=== PATIENT | female | born 1975 | race Caucasian/White ===

== ENCOUNTER → 2021-01-02 | Outpatient (CLI) | payer MEDICARE ==
--- NOTE | 2021-01-04 09:28 | USB ---
Reason for exam: additional evaluation requested from abnormal screening. History: Patient is nulliparous. Family history of breast cancer in mother at age 58 and breast cancer in paternal grandmother at age 60. Took hormonal contraceptives for 3 years. Physical Findings: Breast exam preformed at baseline screening. US Breast Workup [facility] Right complete breast ultrasound includes all four quadrants, the retroareolar region and axilla. Finding demonstrates a 0.7 x 0.5 x 0.5cm oval, cystic lesion at 12 o'clock, a 0.8 x 0.8 x 0.4cm oval, complex, cystic lesion at 1 o'clock, a 0.4 x 0.4 x 0.2cm oval, complex, cystic lesion at 3 o'clock irregular dumont, biopsy recommended, a 0.6 x 0.6 x 0.4cm oval, cystic cluster at 7 o'clock, a 0.6 x 0.5 x 0.4cm oval, complex, cystic lesion at 8 o'clock, a 0.7 x 0.9 x 0.4cm oval, complex, cystic cluster at 9 o'clock, a 1.8 x 1.6 x 0.8cm largest cyst at 10 o'clock and a 1.7 x 0.9 x 1.0cm lymph node in the axilla. Left complete breast ultrasound includes all four quadrants, the retroareolar region and axilla. Finding demonstrates a 1.0 x 1.0 x 0.6cm oval, cystic lesion at 1 o'clock, a 0.7 x 0.6 x 0.3cm oval, cystic cluster at 2 o'clock, a 0.9 x 0.5 x 0.5cm oval, irregular, cystic lesion at 3 o'clock, a 0.7 x 0.5 x 0.3cm, oval, cystic lesion at 5 o'clock, a 1.6 x 1.4 x 0.7cm cystic cluster at 11 o'clock and a 1.4 x 1.1 x 0.6cm lymph node at the axilla. These results were verbally communicated with the patient and result sheet given to the patient on 01/02/21. ASSESSMENT: Suspicious, BI-RAD 4 RECOMMENDATION: Ultrasound core biopsy of the right breast. (3 o'clock) Called Dr. Baca's office with mammographic findings and has scheduled an appointment for the patient for 01/09/21 at 1:[address] Delacruz. Biopsy scheduled for 01/17/21 at 8:00. PRELIMINARY REPORT CALLED AND FAXED TO DR. DELACRUZ ON 01/04/21.
== END | disposition home or self-care (01) ==
LOC: RADUSWWP 14:46
PROVIDERS: ATTEND Family Medicine
DX: N60.01 Solitary cyst of right breast (principal); N60.02 Solitary cyst of left breast; Z80.3 Family history of malignant neoplasm of breast

== ENCOUNTER → 2021-01-09 | Day surgery (SDC) | payer MEDICARE ==
[2021-01-09 12:53] VITALS: PULSE 79; RESP 16
[2021-01-09 14:20] VITALS: BP 138/85; TEMP 98.3
--- NOTE | 2021-01-09 19:51 | USB ---
EXAMINATION TYPE: US biopsy breast VAD LT, MG post biopsy diagnostic mammo LT wo CAD DATE OF EXAM: 01/09/2021 CLINICAL HISTORY: 45-year-old female R92.8 ABN MAMMO. TECHNIQUE: Ultrasound guided core biopsy of the left breast. COMPARISON: 01/02/2021 and 12/19/2020 FINDINGS: The procedure of ultrasound guided core biopsy was explained to the patient. Benefits, alternatives, and risks were discussed. An informed consent was then obtained. The 8mm hypoechoic left breast lesion at the 3:00 position, zone B/C is identified and targeted for biopsy. The patient was placed in supine positioning for imaging and for the procedure. The overlying skin was prepped and draped in usual sterile fashion. Lidocaine was used as anesthetic into the skin and subcutaneous tissue up to area of concern in the 3:00 left breast. Under ultrasound guidance, a 13-gauge vacuum-assisted mammotome biopsy gun was used to obtain 5 core samples. Following this, a ribbon clip was left in lesion. The patient tolerated the procedure well without any immediate complication. The patient was kept in the radiology department for short stay after the procedure and then discharged home in stable condition. Postbiopsy mammogram shows clip in position. IMPRESSION: Successful, uncomplicated ultrasound guided core biopsy of area of concern in the 3:00 left breast, full pathology results to follow. If benign results, six-month follow-up bilateral breast ultrasounds can be performed. Pathology Results: High Risk LEFT BREAST, THREE O'CLOCK, ULTRASOUND GUIDED CORE BIOPSY: Intraductal papilloma with focal acute inflammation, fibrosis and background fibrocystic changes. Recommendation Surgical consult of the left breast. Consider open biopsy. LINDA
== END ==
LOC: RADUSWWP 11:40
PROVIDERS: ATTEND Surgery
DX: Z09 Encounter for follow-up examination after completed treatment for conditions other than malignant neoplasm (principal); D24.2 Benign neoplasm of left breast
CPT/HCPCS: 88305; 77065; 19083; A4648; J2001

== ENCOUNTER 2021-02-07 10:44 | Day surgery (SDC) | payer MEDICARE ==
[2021-02-05 13:13] VITALS: BMI 32.3
[~2021-02-07 10:44] MED LIST: ACETAMINOPHEN TAB 500 MG TAB PO PRN; DEXAMETHASONE SOD PHOSPHATE 4 MG/ML 1 ML VIAL IV ONE; HEPARIN SODIUM,PORCINE/PF 5,000 UNIT/0.5 ML SYRINGE SQ PRN; HYDROmorphone 0.5 MG/0.5 ML SYRINGE IVP PRN; LACTATED RINGERS 1,000 ML IV SCH; LIDOCAINE 1% (10MG/ML) FOR IV START INTRADERMA PRN; MIDAZOLAM 2 MG/2 ML VIAL IV PRN; ONDANSETRON 4 MG/2 ML VIAL IVP ONE
[2021-02-07] MEDS ORDERED: ALPRAZolam 0.5 MG TAB ONE (11:26)
[2021-02-07] MEDS ORDERED: ALPRAZolam 0.5 MG TAB PO ONE (11:29)
[2021-02-07] MEDS ORDERED: LIDOCAINE 1% INJ 10MG/ML (20 ML MDV) SQ ONE ×2 (12:19→12:26)
[2021-02-07] MEDS ORDERED: MIDAZOLAM 2 MG/2 ML VIAL ONE (15:05)
[2021-02-07] MEDS ORDERED: PROPOFOL 10 MG/ML 20 ML VIAL IV ONE (15:05)
[2021-02-07] MEDS ORDERED: ONDANSETRON 4 MG/2 ML VIAL ONE (15:05)
[2021-02-07] MEDS ORDERED: KETOROLAC 15 MG/ML 1 ML VIAL ONE (15:05)
[2021-02-07] MEDS ORDERED: fentaNYL (PF) 50 MCG/ML 2 ML AMP ONE (15:05)
[2021-02-07] MEDS ORDERED: BUPIVACAIN-EPI 0.25%-1:200,000 30 ML VIAL SQ ONE ×2 (15:32→15:43)
[2021-02-07] MEDS ORDERED: NALOXONE 0.4 MG/ML 1 ML VIAL IV PRN (16:11)
--- NOTE | 2021-02-07 16:12 | P.OP ---
Date of Procedure: 02/07/21 Procedure(s) Performed: PREOPERATIVE DIAGNOSIS: Abnormal left mammogram POSTOPERATIVE DIAGNOSIS: Same PROCEDURE: Left Breast wire localization biopsy SURGEON: Nubia EBL: Minimal ANESTHESIA: Sedation plus local COMPLICATIONS: None OPERATIVE PROCEDURE: Patient was placed on the operating room table in the sup ine position. The patient's breast was prepped and draped in usual sterile fashion. A curvilinear incision was made adjacent to the wire entrance site. I followed the wire down into the breast tissue. The breast tissue around the tip of the wire was fully excised using electrocautery. The specimen was sent for specimen radiogram. The clip was present within the specimen. The subcutaneous tissues were inspected. No bleeding was seen. The subcutaneous tissues were closed using 3-0 Vicryl sutures. The skin was closed using a running 4-0 Monocryl stitch. Skin glue and sterile dressings were applied. DISPOSITION: Stable to recovery room
[2021-02-07 16:24] VITALS: RESP 16; TEMP 97.1
[2021-02-07] MEDS ORDERED: LACTATED RINGERS 1,000 ML IV ONE (16:43)
--- NOTE | 2021-02-07 17:11 | MM ---
EXAMINATION TYPE: MG pre op needle loc LT, MG surgical specimen LT DATE OF EXAM: 02/07/2021 COMPARISON: 01/02/2021 and 01/09/2021 CLINICAL HISTORY: 45-year-old female referred for needle localization for excision of biopsy-proven left breast papilloma TECHNIQUE: Needle localization with wire placement and surgical excision of area of concern in the 3:00 left breast. FINDINGS: The procedure of needle localization with wire placement and than surgical excision was explained to the patient. Benefits, alternatives, and risks were discussed. An informed consent was then obtained. The shortest pathway for procedure was chosen. Shortest pathway was a lateral approach. The overlying skin was prepped and draped in usual sterile fashion. Lidocaine was used as anesthetic into the skin and subcutaneous tissue up to the level of area of concern. A 9 cm Kopan's needle was used. It was placed via a lateral approach under mammographic guidance. Subsequent 90 degrees mammogram show the needle to be in satisfactory position relative to the targeted area. At this point, wire was placed and the needle was withdrawn. The wire was fixed to patient's skin. Images were marked for surgeon. The patient tolerated the procedure well without any immediate complication. The patient was kept in the radiology department for short stay after the procedure and then taken to surgery for surgical excision. Targeted clip and wire are identified in specimen mammogram. The patient was kept in hospital for short stay after the procedure and then discharged home in stable condition. IMPRESSION: Successful, uncomplicated needle localization with wire placement and surgical excision of site of biopsy-proven high risk lesion, papilloma 3:00 left breast. Full pathology results to follow. RECOMMENDATION: 1. Awaiting left breast pathology results. 2. If benign results, six-month follow-up bilateral ultrasound will be recommended with particular attention to the right 9:00 position. Pathology Results: Benign LEFT BREAST, LUMPECTOMY: Intraductal papilloma with proliferative fibrocystic change, adenosis, and hemorrhagic/inflamed biopsy site change. Available margins negative for definitive papilloma (see note). Recommendation Follow up mammogram and ultrasound of the left breast in 6 months. [facility]
[2021-02-07 17:15] VITALS: BP 131/80; PULSE 81
== END 2021-02-07 17:05 | disposition home or self-care (01) ==
LOC: OR 10:44
PROVIDERS: ATTEND Surgery
DX: D24.2 Benign neoplasm of left breast (principal); I10 Essential (primary) hypertension; L30.9 Dermatitis, unspecified; Z98.890 Other specified postprocedural states; Z80.3 Family history of malignant neoplasm of breast; Z82.49 Family history of ischemic heart disease and other diseases of the circulatory system; Z83.3 Family history of diabetes mellitus; Z84.89 Family history of other specified conditions; Z79.899 Other long term (current) drug therapy; Z91.040 Latex allergy status
CPT/HCPCS: 81025; 88307; 76098; 19281; 19301; C1819; J2250; J1100; J0690; J2405; J2001; J3010; J1885; J2704; J1644

== ENCOUNTER → 2022-01-13 | Outpatient (CLI) | payer MEDICARE ==
--- NOTE | 2022-01-14 17:50 | MM ---
Reason for Exam: Screening (asymptomatic). Last screening mammogram was performed 12 month(s) ago. Patient History: Menarche at age 14. Patient has no children. Patient used Hormonal Contraceptives for 3 years. 02/07/2021, Lumpectomy on the Left side. 02/07/2021, Benign Core Biopsy on the left side. 01/09/2021, High risk Core Biopsy on the left side. Paternal grandmother had breast cancer, age 60. Mother had breast cancer, age 58. Last menstrual period: 01/03/2022 Risk Values: Ana 5 year model risk: 4.3%. NCI Lifetime model risk: 27.1%. Prior Study Comparison: 12/19/2020 Bilateral Screening Mammogram, [facility]. 01/09/2021 Left Diagnostic Mammogram, [facility]. 09/09/2021 Left MG 3D diag mammo w/cad LT, [facility]. Tissue Density: The breast tissue is heterogeneously dense. This may lower the sensitivity of mammography. Findings: Analyzed By CAD. Postexcisional changes posterior lateral left breast. Asymmetric density far posterior superior right MLO view is more defined and incompletely disperses on 3-D images. There is a global asymmetry here laterally on the cc view. Further evaluation recommended. Overall Assessment: Incomplete: need additional imaging evaluation, BI-RAD 0 Management: Special View Mammogram of the right breast. 1. Spot 3-D MLO, 3-D XCCL, and 3-D lateral views (to include far posterior tissues). 2. Whole right breast ultrasound especially in light of the patient's high risk scores. [facility] will attempt to contact patient to return for supplemental views and ultrasound if indicated. Electronically signed and approved by: Mami Nguyen M.D. Radiologist
== END | disposition home or self-care (01) ==
LOC: RADMAMWWP 14:33
PROVIDERS: ATTEND Family Medicine
DX: Z12.31 Encounter for screening mammogram for malignant neoplasm of breast (principal); Z80.3 Family history of malignant neoplasm of breast; Z98.890 Other specified postprocedural states
CPT/HCPCS: 77063; 77067

== ENCOUNTER → 2022-01-21 | Outpatient (CLI) | payer MEDICARE ==
--- NOTE | 2022-01-21 15:32 | MM ---
Reason for Exam: Additional evaluation requested from abnormal screening. Last screening mammogram was performed less than 1 month ago. Patient History: Menarche at age 14. Patient has no children. Patient used Hormonal Contraceptives for 3 years. 02/07/2021, Lumpectomy on the Left side. 02/07/2021, Benign Core Biopsy on the left side. 01/09/2021, High risk Core Biopsy on the left side. Paternal grandmother had breast cancer, age 60. Mother had breast cancer, age 58. Risk Values: Ana 5 year model risk: 4.3%. NCI Lifetime model risk: 27.1%. Tissue Density: Right: The breast tissue is heterogeneously dense. This may lower the sensitivity of mammography. Findings: Analyzed By CAD. No definitive lesion posterior upper right breast but background dense tissue noted. Overall Assessment: Incomplete: need additional imaging evaluation, BI-RAD 0 Management: Diagnostic Breast Ultrasound of the right breast. Targeted ultrasound right breast. Recent high risk lesion left breast and background extremely dense tissue. Electronically signed and approved by: Yakov Huynh M.D.
--- NOTE | 2022-01-21 16:03 | USB ---
Patient History: Menarche at age 14. Patient has no children. Patient used Hormonal Contraceptives for 3 years. 02/07/2021, Lumpectomy on the Left side. 02/07/2021, Benign Core Biopsy on the left side. 01/09/2021, High risk Core Biopsy on the left side. Paternal grandmother had breast cancer, age 60. Mother had breast cancer, age 58. Risk Values: Ana 5 year model risk: 4.3%. NCI Lifetime model risk: 27.1%. Technique: Method: Targeted. Prior Study Comparison: 01/09/2021 Left Diagnostic Mammogram, [facility]. 09/09/2021 Left MG 3D diag mammo w/cad LT, [facility]. 01/13/2022 Bilateral MG 3D screening mammo w/cad, [facility]. Findings: The upper outer quadrant of the right breast and the axilla of the right breast were scanned. Targeted ultrasound right breast shows dense fibroglandular tissue thin-walled cysts of varying shape. There are prominent right axillary lymph nodes with retention of central fatty hilum towards the end of study. Overall Assessment: Benign, BI-RAD 2 Management: Screening Mammogram of both breasts in 1 year. Return to routine follow-up. Patient told the findings and recommendation at time of dictation. Electronically signed and approved by: Yakov Huynh M.D.
== END | disposition home or self-care (01) ==
LOC: RADMAMWWP 15:04
PROVIDERS: ATTEND Family Medicine
DX: R92.8 Other abnormal and inconclusive findings on diagnostic imaging of breast (principal); Z80.3 Family history of malignant neoplasm of breast
CPT/HCPCS: 77065; 76642; G0279; 77061

== ENCOUNTER → 2022-01-24 | Outpatient (CLI) | payer MEDICARE ==
--- NOTE | 2022-01-27 06:48 | US ---
EXAMINATION TYPE: US transvaginal DATE OF EXAM: 01/24/2022 COMPARISON: NONE CLINICAL HISTORY: Z80.49 FAMILY HISTORY OF MALIGNANT NEOPLASM. Pt states mother had h/o uterine CA/ p t has no other complaints at this time TECHNIQUE: Transvaginal (TV). Transvaginal sonographic images of the pelvis were acquired. Date of LMP: 01/02/2022 EXAM MEASUREMENTS: Uterus: 8.3 x 4.3 x 5.0 cm Endometrial Stripe: 1.0 cm Right Ovary: 2.3 x 1.9 x 1.4 cm Left Ovary: 3.2 x 3.0 x 1.8 cm 1. Uterus: Anteverted Heterogeneous, probable fibroid anterior fundus= 2.5 x 1.9 x 2.3 cm. 2. Endometrium: Possible polyp= 1.1 x 0.7 x 1.0 cm. There appears to be a vascular stalk. 3. Right Ovary: wnl 4. Left Ovary: Dominant follicle= 1.8 x 1.4 x 1.4 cm 5. Bilateral Adnexa: wnl 6. Posterior cul-de-sac: wnl IMPRESSION: 1. Hypoechoic heterogenous lesion within the endometrium measuring up to 1.1 cm possibly representing a polyp with a vascular stalk. Direct visualization is recommended. 2. Probable anterior uterine fundus fibroid measuring up to 2.5 cm.
== END | disposition home or self-care (01) ==
LOC: RADUSWWP 16:49
PROVIDERS: ATTEND Family Medicine
DX: N85.8 Other specified noninflammatory disorders of uterus (principal); Z80.49 Family history of malignant neoplasm of other genital organs
CPT/HCPCS: 76830

== ENCOUNTER → 2023-02-13 | Outpatient (CLI) | payer MEDICARE ==
--- NOTE | 2023-02-13 14:41 | MM ---
Reason for Exam: Screening (asymptomatic). Last mammogram was performed 1 year(s) and 1 month(s) ago. Patient History: Menarche at age 14. Patient has no children. Patient used Hormonal Contraceptives for 3 years. 02/07/2021, Lumpectomy on the Left side. 02/07/2021, Benign Core Biopsy on the left side. 01/09/2021, High risk Core Biopsy on the left side. Paternal grandmother had breast cancer, age 60. Mother had breast cancer, age 58. Risk Values: Ana 5 year model risk: 4.0%. NCI Lifetime model risk: 26.5%. Prior Study Comparison: 09/09/2021 Left MG 3D diag mammo w/cad , [facility]. 01/13/2022 Bilateral MG 3D screening mammo w/cad, [facility]. 01/21/2022 Right MG 3D work up w/cad RT, [facility]. Tissue Density: The breast tissue is heterogeneously dense. This may lower the sensitivity of mammography. Findings: Analyzed By CAD. There is no suspicious group of microcalcifications within either breast. There is a 1.9 cm ovoid partially obscured mass within the left breast at 9:00 anterior to middle depth. Overall Assessment: Incomplete: need additional imaging evaluation, BI-RAD 0 Management: Diagnostic Breast Ultrasound of the left breast. A clinical breast exam by your physician is recommended on an annual basis and results should be correlated with mammographic findings. [facility] will attempt to contact patient to return for supplemental views and ultrasound if indicated. Note on Ana scores and lifetime risk: 1. A Ana score greater than 3% is considered moderate risk. If this is the case, consider specialist referral to assess eligibility for a risk reducing agent. If overall lifetime risk for the development of breast cancer is 20% or higher, the patient may qualify for future screening with alternating mammogram and breast MRI. Electronically signed and approved by: Tristen Ferrell D.O.
== END | disposition home or self-care (01) ==
LOC: RADMAMWWP 14:04
PROVIDERS: ATTEND Internal Medicine
DX: Z12.31 Encounter for screening mammogram for malignant neoplasm of breast (principal); Z80.3 Family history of malignant neoplasm of breast
CPT/HCPCS: 77063; 77067

== ENCOUNTER → 2023-02-25 | Outpatient (CLI) | payer MEDICARE ==
--- NOTE | 2023-02-25 14:41 | USB ---
Reason for Exam: Additional evaluation requested from abnormal screening. Patient History: Menarche at age 14. Patient has no children. Patient used Hormonal Contraceptives for 3 years. 02/07/2021, Lumpectomy on the Left side. 02/07/2021, Benign Core Biopsy on the left side. 01/09/2021, High risk Core Biopsy on the left side. Paternal grandmother had breast cancer, age 60. Mother had breast cancer, age 58. Risk Values: Ana 5 year model risk: 4.0%. NCI Lifetime model risk: 26.5%. Technique: Method: Targeted. Prior Study Comparison: 01/13/2022 Bilateral MG 3D screening mammo w/cad, [facility]. 01/21/2022 Right MG 3D work up w/cad RT, [facility]. 02/13/2023 Bilateral MG 3D screening mammo w/cad, [facility]. Findings: The medial section of the breast of the left breast, the axilla of the left breast and the retroareolar of the left breast were scanned. Targeted ultrasound left breast medial aspect 8-10 o'clock including scanning of the subareolar region and axilla. At the 10:00 position, 4 cm from the nipple, there is a cyst with debris measuring 2.0 x 1.9 x 1.2 cm, likely mammographic correlate. Precautionary six-month follow-up mammogram recommended. Overall Assessment: Probably benign, BI-RAD 3 Management: Diagnostic Mammogram of the left breast in 6 months. As a precautionary measure. The medially located mammographic left breast mass likely corresponds to the debris filled cyst on ultrasound. Given the patient's increased lifetime risk score, the patient may qualify for future screening with alternating mammogram and breast MRI. Patient should continue monthly self breast exams. These results do not preclude additional follow-up of suspicious palpable abnormalities. Results were given to the patient verbally at the time of exam. Electronically signed and approved by: Mami Nguyen M.D. Radiologist
== END | disposition home or self-care (01) ==
LOC: RADUSWWP 14:00
PROVIDERS: ATTEND Internal Medicine
DX: R92.8 Other abnormal and inconclusive findings on diagnostic imaging of breast (principal); Z80.3 Family history of malignant neoplasm of breast

== ENCOUNTER → 2023-09-25 | Outpatient (CLI) | payer MEDICARE ==
--- NOTE | 2023-09-25 13:29 | MM ---
Reason for Exam: Clinical finding. Last screening mammogram was performed 8 month(s) ago. Patient History: Menarche at age 14. Patient has no children. Patient used Hormonal Contraceptives for 3 years. 02/07/2021, Lumpectomy on the Left side. 02/07/2021, Benign Core Biopsy on the left side. 01/09/2021, High risk Core Biopsy on the left side. Paternal grandmother had breast cancer, age 60. Mother had breast cancer, age 58. Last menstrual period: 09/01/2023 Risk Values: Mina 5 year model risk: 3.7%. NCI Lifetime model risk: 25.9%. Tissue Density: The breasts are heterogeneously dense, which may obscure small masses. Findings: Analyzed By CAD. The previous isodense circumscribed nodule medially in the left breast has resolved. Findings suggest a fluctuating, now involuted cyst. No significant change from prior exams. Overall Assessment: Benign, BI-RAD 2 Management: Screening Mammogram of both breasts in 1 year. SEE NOTE BELOW IN REGARDS TO PATIENT'S INCREASED 5 YEAR MINA SCORE AND INCREASED LIFETIME RISK SCORE. Results were given to the patient verbally at the time of exam. Patient should continue monthly self-breast exams. A clinical breast exam by your physician is recommended on an annual basis. This exam should not preclude additional follow-up of suspicious palpable abnormalities. Note on Mina scores and lifetime risk: 1. A Mina score greater than 3% is considered moderate risk. If this is the case, consider specialist referral to assess eligibility for a risk reducing agent. 2. If overall lifetime risk for the development of breast cancer is 20% or higher, the patient may qualify for future screening with alternating mammogram and breast MRI. Electronically signed and approved by: Mami Nguyen M.D. Radiologist
== END | disposition home or self-care (01) ==
LOC: RADMAMWWP 12:58
PROVIDERS: ATTEND Obstetrics & Gynecology
DX: R92.333 Mammographic heterogeneous density, bilateral breasts (principal); N63.20 Unspecified lump in the left breast, unspecified quadrant; Z80.3 Family history of malignant neoplasm of breast
CPT/HCPCS: 77062; 77066

== ENCOUNTER → 2024-11-11 | Outpatient (CLI) | payer MEDICARE ==
--- NOTE | 2024-11-11 13:29 | MM ---
Reason for Exam: Screening (asymptomatic). Last mammogram was performed 1 year(s) and 1 month(s) ago. Patient History: Menarche at age 14. Patient has no children. Patient used Hormonal Contraceptives for 3 years. 02/07/2021, Lumpectomy on the Left side. 02/07/2021, Benign Core Biopsy on the left side. 01/09/2021, High risk Core Biopsy on the left side. Paternal grandmother had breast cancer, age 60. Mother had breast cancer, age 58. Risk Values: Ana 5 year model risk: 3.4%. NCI Lifetime model risk: 25.3%. Prior Study Comparison: 01/21/2022 Right MG 3D work up w/cad RT, [facility]. 02/13/2023 Bilateral MG 3D screening mammo w/cad, [facility]. 09/25/2023 Bilateral MG 3D diag mammo w/cad [facility], [facility]. Tissue Density: The breasts are heterogeneously dense, which may obscure small masses. Findings: Analyzed By CAD. Right breast: There is no suspicious group of microcalcifications or new suspicious mass. Left breast: There is no suspicious group of microcalcifications or new suspicious mass. Overall Assessment: Negative, BI-RAD 1 Management: Screening Mammogram of both breasts in [address] [facility] will attempt to contact patient to return for supplemental views and ultrasound if indicated. Patient should continue monthly self-breast exams. A clinical breast exam by your physician is recommended on an annual basis. This exam should not preclude additional follow-up of suspicious palpable abnormalities. Note on Ana scores and lifetime risk: 1. A Ana score greater than 3% is considered moderate risk. If this is the case, consider specialist referral to assess eligibility for a risk reducing agent. 2. If overall lifetime risk for the development of breast cancer is 20% or higher, the patient may qualify for future screening with alternating mammogram and breast MRI. [facility], , 11/11/2024 1:24 PM. Electronically signed and approved by: Bashir Fuentes DO
== END | disposition home or self-care (01) ==
LOC: RADMAMWWP 12:33
PROVIDERS: ATTEND Registered Nurse
DX: Z12.31 Encounter for screening mammogram for malignant neoplasm of breast (principal); R92.333 Mammographic heterogeneous density, bilateral breasts; Z92.0 Personal history of contraception; Z80.3 Family history of malignant neoplasm of breast
CPT/HCPCS: 77063; 77067